=== PATIENT | male | born 1995 | race Caucasian/White ===

== ENCOUNTER 2023-08-11 08:27 | Outpatient (AMB) | payer OTHER, SELFPAY ==
--- NOTE | 2023-08-11 08:47 | MHC.OFFWIV ---
Intake Vital Signs 08/11/23 08:48 Weight 359 lb BP 120/84 Blood Pressure Location Rt brachial Position Sitting Pulse 74 Pulse Source Pulse Oximeter Pulse Oximetry (%) 97 Oxygen Delivery Method Room Air Intake Visit Reasons: EP RT wrist pain (lobby) Allergies No Known Allergies Allergy (Verified 08/11/23 08:49) Medication List - Last Reconciled 08/11/23 by María Elena Rizvi MD No Known Home Meds Do you need a note to return to daycare/school/sports/work: Yes HPI EP RT wrist pain (lobby) HPI Details Patient is a 28-year-old gentleman who has been having pain in his right wrist since in February 2023 Patient says that he woke up 1 day and was feeling pain. He has been wearing wrist splint since He tells me that sometimes discomfort is better the other time it is hurting. 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 with food And prednisone 20 mg once a day for 5 days. Review of Systems Const All systems reviewed & are unremarkable except as noted in HPI and below Physical Exam Vital Signs: Last Vital Signs Pulse 74 08/11/23 08:48 BP 120/84 08/11/23 08:48 Pulse Ox 97 08/11/23 08:48 Oxygen Delivery Method Room Air 08/11/23 08:48 Const General: no acute distress Orientation/consciousness: patient oriented x3 Eyes General: appearance normal, both eyes and all related structures Resp Effort & Inspection: normal respiratory effort and able to speak in complete sentences Auscultation: clear to auscultation bilaterally Neuro General: patient oriented x3 Extrem Other: Right hand wrist movement intact, no pain with tapping over median nerve, patient complaining of paresthesia over thumb and 1st 2 fingers, fingers with full range of motion without any pain, wrist has full range of motion, skin color pink, sensory intact Psych Mental Status: mental status grossly normal Assessment & Plan Assessment & Plan (1) Paresthesias in right hand: Code(s): R20.2 - Paresthesia of skin (2) Wrist pain, right: Code(s): M25.531 - Pain in right wrist Plan Patient is a 28-year-old gentleman who has been having pain in his right wrist since in February 2023 Patient says that he woke up 1 day and was feeling pain. He has been wearing wrist splint since He tells me that sometimes discomfort is better the other time it is hurting. 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 with food And prednisone 20 mg once a day for 5 days. Medications: New prednisone 20 mg PO DAILY 5 days 5 tabs 0RF naproxen 500 mg PO BID PRN 60 tabs 0RF pain Coding Level of Care Code New Pt Level 3 (40518) Diagnoses Paresthesias in right hand R20.2 Wrist pain, right M25.531
[2023-08-11 08:48] VITALS: BP 120/84; PULSE 74; O2SAT 97
== END 2023-08-11 09:43 | disposition home or self-care (01) ==
PROVIDERS: Visit Provider Internal Medicine
DX: R20.2 Paresthesia of skin (principal); M25.531 Pain in right wrist
CPT/HCPCS: 99203

== ENCOUNTER 2023-10-22 12:52 | Outpatient (AMB) | payer OTHER, SELFPAY ==
--- NOTE | 2023-10-22 12:55 | A.OFFPC_ITS ---
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 Research & Insights Executive Required: No Allergies No Known Allergies Allergy (Verified 10/22/23 12:58) Tobacco use date assessed: 10/22/23 Dental Screening Dental Screen Date: 10/22/23 Did you have a dental visit in the last 12 months?: No Did you have a dental problem in the last 6 months where you did not have access to dental care?: No HPI HPI Comments History of Present Illness Details 28 year old male with a past medical his tory of right hand pain presenting for follow up Intermittent levels of right carpal tunnel pain. 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 Needs to use splin nightly or pain worsens Recent strain left low back playing volleyball. Was improving then reinjured. Is sues with weight-diffulty with losing despite volleyball ROS see HPI PHYSICAL EXAM: GENERAL: Alert and oriented x 3. NAD EYES: EOMI. Anicteric. HENT: Moist mucous membranes. No scleral icterus. No cervical lymphadenopathy. LUNGS: Clear to auscultation bilaterally. CARDIOVASCULAR: Regular rate and rhythm. No murmur. No JVD. ABDOMEN: Soft, non-tender +bs EXTREMITIES: No edema. Non-tender. SKIN: No rashes or lesions. Warm. NEUROLOGIC: No focal neurological deficits. CN II-XII grossly intact PSYCHIATRIC: Cooperative. Appropriate mood and affect PFSH Family History (Updated 10/22/23 @ 13:16 by Shaneka Boswell) Father Alcohol abuse Substance abuse FH: mental illness Sister FH: mental illness Maternal Grandmother High blood pressure High cholesterol Diabetes Paternal Grandmother High blood pressure High cholesterol Diabetes Thyroid disorder Mother Cardiovascular disease Social History (Updated 10/22/23 @ 13:18 by Shaneka Boswell) Housing: [facility] Patient Tobacco Use Status: Never used Tobacco e-Cigarette/Vaping Use: Currently Using Second Hand Smoke Exposure: Yes Substance Use Type: Marijuana service: No 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 1. Little interest or pleasure in doing things: several days 2. Feeling down, depressed, or hopeless: several days 3. Trouble falling or staying asleep, or sleeping too much: several days 4. Feeling tired or having little energy: several days 5. Poor appetite or overeating: several days 6. Feeling bad about yourself - or that you are a failure or have let yourself or your family down: more than half the days 7. Trouble concentrating on things, such as reading the newspaper or watching television: several days 8. Moving or speaking so slowly that other people could have noticed. Or the opposite - being so fidgety or restless that you have been moving around a lot more than usual: not at all 9. Thoughts that you would be better off or of hurting yourself in some way: not at all Total score: 8 Depression Screening Interpretation: Positive Depression Screening Follow-up: Declines treatment Depression Screening Done: Yes 39811 - PHQ-9 Billing: Yes Source: Developed by Drs. Enoch Jasso, Samantha Villarreal, Laron Stevens and colleagues, with an educational harvinder from [employer]. Thrive Questionnaire Date Thrive assessed: 10/22/23 I am a: Patient What is your living situation today?: I have a steady place to live Within the past 12 months, did the food you bought not last and you didn't have the money to get more?: Never true Within the past 12 months, did you worry whether your food would run out before you got money to buy more?: Never true Do you have trouble paying for medicines?: No Do you have trouble getting transportation to medical appointments?: No Do you have trouble paying your heating and electricity bill?: No Do you have trouble taking care of your child, family member or friend?: No Do you have trouble with day-to-day activities such as bathing, preparing meals, shopping, managing finances, etc.?: No Are you currently unemployed and looking for a job?: No Are you interested in more education?: No Please select the resources that you would like help with: None Currently or been in a relationship where the following occur: No concerns reported THRIVE Score: 0 AUDIT C Alcohol Use Questionnaire (AUDIT-C) 1. How often do you have a drink containing alcohol?: 2-4 times a month 2. How many drinks containing alcohol do you have on a typical day when you are drinking?: 3 or 4 3. How often do you have six or more drinks on one occasion?: Monthly Total Score: 5 FOUZIA-7 AMB Questionnaire FOUZIA-7 Date FOUZIA - 7 assessed: 10/22/23 Feeling nervous, anxious, or on edge: 2 = More than half the days Not being able to stop or control worryin = Several days Worrying too much about different things: 1 = Several days Trouble relaxin = Several days Being so restless that it is hard to sit still: 0 = Not at all Becoming easily annoyed or irritable: 2 = More than half the days Feeling afraid as if something awful might happen: 0 = Not at all Total FOUZIA-7 score (0-4 normal; 5-9 mild; 10-14 moderate; 15-21 severe): 7 Source: Developed by Drs. Enoch Jasso, Samantha Villarreal, Laron Stevens and colleagues, with an educational harvinder from [employer]. FOUZIA-7 Assessment Billing FOUZIA-7 Assessment Tool: FOUZIA-7 Assessment 06614 Physical exam (Primary Care) Vital Signs: Last Vital Signs Temp 97.8 F 10/22/23 13:04 Pulse 84 10/22/23 13:04 Resp 16 10/22/23 13:04 BP 124/64 10/22/23 13:22 Pulse Ox 99 10/22/23 13:04 Oxygen Delivery Method Room Air 10/22/23 13:04 BMI result Body Mass Index 46.4 Tobacco/Smoking Status: Tobacco use Status Tobacco use date assessed 10/22/23 10/22/23 13:02 Patient Tobacco Use Status Never used Tobacco 10/22/23 13:18 e-Cigarette/Vaping Use Currently Using 10/22/23 13:18 PHQ-9: PHQ-9 Score PHQ-9: Total score 8 10/24/23 11:01 Depression Screening Interpretation: Positive Depression Screening Follow-up: Declines treatment Thrive Assessment: Date of Thrive Assessment Date Thrive assessed 10/22/23 10/22/23 13:17 Currently or been in a relationship where the following occur: No concerns reported Assessment and Plan Assessment & Plan (1) Wrist pain, right: Code(s): M25.531 - Pain in right wrist Plan: refer ortho Orders: Orders Comprehensive Met. Panel 6 Months Z13.0 - Encounter for screening for diseases of the blood and blood-forming organs and certain disorders involving the immune mechanism, Z13.220 - Encounter for screening for lipoid disorders, Z13.228 - Encounter for screening for other metabolic disorders Hemoglobin A1c 6 Months Z13.0 - Encounter for screening for diseases of the blood and blood-forming organs and certain disorders involving the immune mechan ism, Z13.220 - Encounter for screening for lipoid disorders, Z13.228 - Encounter for screening for other metabolic disorders Complete Blood Count Auto Diff 6 Months Z13.0 - Encounter for screening for diseases of the blood and blood-forming organs and certain disorders involving the immune mechanism, Z13.220 - Encounter for screening for lipoid disorders, Z13.228 - Encounter for screening for other metabolic disorders Lipid Panel 6 Months Z13.0 - Encounter for screening for diseases of the blood and blood-forming organs and certain disorders involving the immune mechanism, Z13.220 - Encounter for screening for lipoid disorders, Z13.228 - Encounter for screening for other metabolic disorders TSH reflex Free T4 6 Months Z13.0 - Encounter for screening for diseases of the blood and blood-forming organs and certain disorders involving the immune mechanism, Z13.220 - Encounter for screening for lipoid disorders, Z13.228 - Encounter for screening for other metabolic disorders Referrals Orthopedics Referral M25.531 - Pain in right wrist Medications: New cyclobenzaprine 10 mg (2 x 5 mg) PO BEDTIME PRN 30 tabs 0RF muscle spasm tirzepatide (Mounjaro) 2.5 mg (0.5 mL) subcut QWEEK 2 mL 0RF 4 weeks prednisone 40 mg (2 x 20 mg) PO DAILY 10 tabs 0RF 5 days ondansetron HCl 4 mg PO Q8H PRN 60 tabs 3RF nausea and vomiting 30 days Coding Level of Care Code New Pt Level 4 (76074) Complex EM visit Add On G2211 Diagnoses Wrist pain, right M25.531 Additional Codes FOUZIA-7 Assessment Billing - FOUZIA-7 Assessment Tool: FOUZIA-7 Assessment 90713 ([id number])
[2023-10-22 13:04] VITALS: BP 140/72; PULSE 84; RESP 16; TEMP 36.6; O2SAT 99; BMI 46.4
[2023-10-22 13:22] VITALS: BP 124/64
== END 2023-10-22 13:58 | disposition home or self-care (01) ==
PROVIDERS: Visit Provider Internal Medicine
DX: M25.531 Pain in right wrist (principal)
CPT/HCPCS: 99214

== ENCOUNTER 2024-05-25 08:58 | Outpatient (REF) | payer OTHER, SELFPAY ==
[2024-05-25 10:11] LABS: MANUAL DIFF FLAG NO
[2024-05-25 10:21] LABS: Basophils Percent Auto 0.5 % (0-2); Eosinophils Absolute Auto 0.2 X10*3/uL (0.0-0.4); Eosinophils Percent Auto 2.1 % (0-4); Hematocrit 46.7 % (42.0-52.0); Hemoglobin 15.8 g/dl (14.0-18.0); Imm Gran Abs Auto 0.03 X10*3/uL (0.00-0.03); Imm Gran Pct Auto 0.4 % (0.0-0.4); Lymphocytes Absolute Auto 1.8 X10*3/uL (1.2-4.9); Lymphocytes Percent Auto 23.6 % (20-40); Mean Corpuscular HGB Conc 33.8 g/dl (31.0-36.0); Mean Corpuscular Hemoglobin 29.5 pg (27.0-33.0); Mean Corpuscular Volume 87.3 fL (80.0-98.0); Mean Platelet Volume 10.3 fL (9.4-12.4); Monocytes Absolute Auto 0.5 X10*3/uL (0.1-1.2); Monocytes Percent Auto 6.8 % (2-11); Neutrophils Percent Auto 66.6 % (45-73); Platelet Count 283 X10*3/uL (160-400); Red Blood Count 5.35 X10*6/uL (4.60-5.80); Red Cell Distribution Width 12.9 % (11.0-16.0); White Blood Count 7.5 X10*3/uL (4.8-10.8)
[2024-05-25 10:42] LABS: Estimated Average Glucose 91 mg/dL; Hemoglobin A1C 116.6379 umol/L; Hemoglobin A1c % 4.8 % (<6.0); Total Hemoglobin (HGBA1C) 4032.2821 umol/L
[2024-05-25 11:02] LABS: Alanine Aminotransferase 20 U/L (0-40); Albumin Level 4.6 g/dL (3.5-5.0); Alkaline Phosphatase 126 U/L (39-117); Anion Gap 10 (12-20); Aspartate Amino Transferase 18 U/L (5-37); Bilirubin Total 0.6 mg/dL (0.0-1.0); Blood Urea Nitrogen 21 mg/dL (9-16); Calcium 9.5 mg/dL (8.4-10.2); Carbon Dioxide 28 mmol/L (22-29); Chloride 109 mmol/L (96-108); Cholesterol 160 mg/dL (<200); Estimated Glomerular Filt Rate > 60; Glucose Random 106 mg/dL (60-115); HDL Cholesterol 38 mg/dL (>40); LDL Cholesterol Calculated 102 mg/dL (<100); Sodium 143 mmol/L (135-145); Total Protein 7.8 g/dL (6.5-8.0); Triglycerides 100 mg/dL (<150)
[2024-05-25 11:10] LABS: TSH reflex Free T4 1.14 uIU/mL (0.32-4.0)
== END 2024-05-25 08:59 | disposition home or self-care (01) ==
LOC: HO.HMGCLDS 08:58
PROVIDERS: PCP Internal Medicine; Visit Provider Internal Medicine
DX: Z13.0 Encounter for screening for diseases of the blood and blood-forming organs and certain disorders involving the immune mechanism (principal); Z13.220 Encounter for screening for lipoid disorders; Z13.228 Encounter for screening for other metabolic disorders; Z13.29 Encounter for screening for other suspected endocrine disorder; Z13.1 Encounter for screening for diabetes mellitus
CPT/HCPCS: 36415; 80053; 80061; 83036; 84443; 85025

== ENCOUNTER 2024-05-30 08:48 | Outpatient (AMB) | payer OTHER, SELFPAY ==
--- OUTSIDE RECORDS SUMMARY | 2024-05-30 09:03 | XMS_ITS | Clinical Summary ---
Author Organization [email or web address] Address [address] [place] [address] Care Team Providers Care Furniture Technician Name Role Phone Unavailable Primary Care Provider Unavailabl e Immunizations Name Administration Dates Next Due Influenza, seasonal, injectable, preservative fr ee 01/06/2024 Social History Tobacco Use Types Packs/Day Years Used Date Smoking Tobacco: Never Assessed Sex and Gender Information Value Date Recorded Sex Assigned at Male 01/06/2024 3:15 PM EDT Legal Sex Male 3:12 PM EDT Gender Identity Male 01/06/2024 3:15 PM EDT Sexual Orientation Straight 01/06/2024 3: 15 PM EDT Plan of Treatment Health Maintenance Due Date Last Done Comments Depression Screening 1993 HIV Screening 1993 SDOH Screening 1993 Alcohol/Substance Use Screening 2005 Tobacco Screening 2005 Family Planning (PISQ) 2008 Hepatitis C Screening 07/07/2011 DTaP/Tdap/Td Vaccines (1 - Tdap) 2012 Hepatitis B Vaccines (1 of 3 - 19+ 3-dose series) 2012 COVID-19 Vaccine ( - 2023-2 5 season) 2023 Zoster Vaccines (1 of 2) 07/07/2043 RSV Patients and Patients Aged 60 years or older (1 - 1-dose 75+ series) 2068 Influenza Vaccine Completed 01/06/2024, 01/20/2020 HIB Vaccines Aged Out No longer eligi ble based on patient's age to complete this topic HPV Vaccines Aged Out No longer eligi ble based on patient's age to complete this topic Hepatitis A Vaccines Aged Out No long er eligible based on patient's age to complete this topic IPV Vaccines Aged Out No longer eligi ble based on patient's age to complete this topic Meningococcal Vaccine Aged Out No norma umang eligible based on patient's age to complete this topic Pneumococcal Vaccine: Pediatrics (0 to 5 Years) and At-Risk Patients (6 to 49) Years) Aged Out No longer eligible b ased on patient's age to complete this topic RSV under 20 months Aged Out No longe r eligible based on patient's age to complete this topic Rotavirus Vaccines Aged Out No longer eligible based on patient's age to complete this topic Insurance [facility] [address] [place] [address]
--- NOTE | 2024-05-30 09:04 | A.OFFPC_ITS ---
Vital Signs 05/30/24 09:09 BP 112/76 Blood Pressure Location Lt brachial Position Sitting Pulse 78 Pulse Source Pulse Oximeter Pulse Oximetry (%) 99 Oxygen Delivery Method Room Air Intake Visit Reasons: 6 month F/U/med-review Intake Note: Six month follow up Allergies No Known Allergies Allergy (Verified 05/30/24 09:06) Tobacco use date assessed: 10/22/23 Dental Screening Dental Screen Date: 10/22/23 HPI HPI Comments History of Present Illness Details 28 year old male with a past medical his tory of right hand pain, anxiety/depression presenting for follow up Intermittent levels of right carpal tunnel pain. 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 Needs to use splint nightly or pain worsens BH: Anxiety, depression stable on prozac 40mg daily. He does require a refill ROS see HPI PHYSICAL EXAM: GENERAL: Alert and oriented x 3. NAD EYES: EOMI. Anicteric. HENT: Moist mucous membranes. No scleral icterus. No cervical lymphadenopathy. LUNGS: Clear to auscultation bilaterally. CARDIOVASCULAR: Regular rate and rhythm. No murmur. No JVD. ABDOMEN: Soft, non-tender +bs EXTREMITIES: No edema. Non-tender. SKIN: No rashes or lesions. Warm. NEUROLOGIC: No focal neurological deficits. CN II-XII grossly intact PSYCHIATRIC: Cooperative. Appropriate mood and affect [facility] Surgical History No pertinent past surgical history Family History Father Alcohol abuse Substance abuse FH: mental illness Sister FH: mental illness Maternal Grandmother High blood pressure High cholesterol Diabetes Paternal Grandmother High blood pressure High cholesterol Diabetes Thyroid disorder Mother Cardiovascular disease Social History Housing: Condominium Alcohol intake: current Patient Tobacco Use Status: Never used Tobacco e-Cigarette/Vaping Use: Currently Using Second Hand Smoke Exposure: Yes Substance Use Type: Marijuana service: No 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 1. Little interest or pleasure in doing things: not at all 2. Feeling down, depressed, or hopeless: several days 3. Trouble falling or staying asleep, or sleeping too much: several days 4. Feeling tired or having little energy: several days 5. Poor appetite or overeating: several days 6. Feeling bad about yourself - or that you are a failure or have let yourself or your family down: several days 7. Trouble concentrating on things, such as reading the newspaper or watching television: not at all 8. Moving or speaking so slowly that other people could have noticed. Or the opposite - being so fidgety or restless that you have been moving around a lot more than usual: not at all 9. Thoughts that you would be better off or of hurting yourself in some way: not at all Total score: 5 Depression Screening Interpretation: Positive Depression Screening Follow-up: Existing condition Depression Screening Done: Yes 77295 - PHQ-9 Billing: Yes Source: Developed by Drs. Enoch Jasso, Samantha Villarreal, Laron Stevens and colleagues, with an educational harvinder from [employer]. Thrive Questionnaire Date Thrive assessed: 05/27/24 I am a: Patient What is your living situation today?: I have a steady place to live Within the past 12 months, did the food you bought not last and you didn't have the money to get more?: Never true Within the past 12 months, did you worry whether your food would run out before you got money to buy more?: Never true Do you have trouble paying for medicines?: No Do you have trouble getting transportation to medical appointments?: No Do you have trouble paying your heating and electricity bill?: No Do you have trouble taking care of your child, family member or friend?: No Do you have trouble with day-to-day activities such as bathing, preparing meals, shopping, managing finances, etc.?: No Are you currently unemployed and looking for a job?: No Are you interested in more education?: No Please select the resources that you would like help with: None Currently or been in a relationship where the following occur: No concerns reported THRIVE Score: 0 AUDIT C Alcohol Use Questionnaire (AUDIT-C) 1. How often do you have a drink containing alcohol?: 2-4 times a month 2. How many drinks containing alcohol do you have on a typical day when you are drinking?: 3 or 4 3. How often do you have six or more drinks on one occasion?: Less than monthly Total Score: 4 FOUZIA-7 AMB Questionnaire FOUZIA-7 Date FOUZIA - 7 assessed: 10/22/23 Feeling nervous, anxious, or on edge: 1 = Several days Not being able to stop or control worryin = Several days Worrying too much about different things: 0 = Not at all Trouble relaxin = Not at all Being so restless that it is hard to sit still: 0 = Not at all Becoming easily annoyed or irritable: 1 = Several days Feeling afraid as if something awful might happen: 0 = Not at all Total FOUZIA-7 score (0-4 normal; 5-9 mild; 10-14 moderate; 15-21 severe): 3 Source: Developed by Drs. Enoch Jasso, Samantha Villarreal, Laron Stevens and colleagues, with an educational harvinder from [employer]. Physical exam (Primary Care) Vital Signs: Last Vital Signs Pulse 78 05/30/24 09:09 BP 112/76 05/30/24 09:09 Pulse Ox 99 05/30/24 09:09 Oxygen Delivery Method Room Air 05/30/24 09:09 Tobacco/Smoking Status: Tobacco use Status Tobacco use date assessed 10/22/23 10/22/23 13:02 Patient Tobacco Use Status Never used Tobacco 05/30/24 09:08 e-Cigarette/Vaping Use Currently Using 05/30/24 09:08 Depression Screening Interpretation: Positive Depression Screening Follow-up: Existing condition Thrive Assessment: Date of Thrive Assessment Date Thrive assessed 05/27/24 05/27/24 12:44 Currently or been in a relationship where the following occur: No concerns reported Coding Level of Care Code Est Pt Level 4 (57012) Diagnoses Anxiety F41.9 Wrist pain, right M25.531 Additional Codes PHQ-9 - 63708 - PHQ-9 Billing: Yes ([id number]) Assessment & Plan Assessment & Plan (1) Anxiety: Code(s): F41.9 - Anxiety disorder, unspecified Category: Medical Plan: stable on prozac. med refilled (2) Wrist pain, right: Code(s): M25.531 - Pain in right wrist Category: Medical Plan: stable on prn naproxen. labs are stable Medications: New naproxen sodium 220 mg PO BID PRN 180 caps 0RF pain fluoxetine 40 mg PO DAILY 90 caps 3RF
[2024-05-30 09:09] VITALS: BP 112/76; PULSE 78; O2SAT 99
== END 2024-05-30 09:19 | disposition home or self-care (01) ==
PROVIDERS: PCP Internal Medicine; Visit Provider Internal Medicine
DX: F41.9 Anxiety disorder, unspecified (principal); M25.531 Pain in right wrist

== ENCOUNTER → 2024-05-30 08:48 | Outpatient (BNVA) | payer OTHER, SELFPAY | PROVIDERS: PCP Internal Medicine; Visit Provider Internal Medicine | DX: F41.9 Anxiety disorder, unspecified (principal); M25.531 Pain in right wrist | CPT/HCPCS: 96127 ==

== ENCOUNTER 2024-07-11 09:26 | Outpatient (AMB) | payer OTHER, SELFPAY ==
--- NOTE | 2024-07-11 09:32 | AM.OFFWIN_ITS ---
Intake Vital Signs 07/11/24 09:33 Height 5 ft 11 in Weight 301 lb 8 oz BMI 42.0 BP 140/92 H Blood Pressure Location Rt brachial Position Sitting Pulse 84 Pulse Source Pulse Oximeter Temp 98.0 F Temp Source Oral Pulse Oximetry (%) 99 Oxygen Delivery Method Room Air Intake Visit Reasons: EP-STD testing Intake Note: Pt presents to the office today looking to have STD testing done. Patient Tobacco Use Status: Never used Tobacco Allergies No Known Allergies Allergy (Verified 07/11/24 09:37) Medication List - Last Reconciled 07/11/24 by María Elena Rizvi MD fluoxetine 40 mg PO DAILY naproxen sodium 220 mg PO BID PRN HPI EP-STD testing HPI Details History - The patient is a 29-year-old male pres enting for sexually transmitted disease/infection testing. - He is beginning a new sexual relations hip soon and had a recent instance of alcohol-related memory loss during a trip to [place]. While in group setting - He has no symptoms like penile dischar ge or dysuria but is seeking precautionary screening for sexually transmitted infections. - Urine testing for gonorrhea and chlamy antonietta will be conducted, and blood tests for additional infections, including HIV, hepatitis, and syphilis, are planned. - He has been counseled about the two-we ek incubation period for detecting some infections post-exposure. Problem List Screening for - Gonorrhea - Chlamydia - HIV - Hepatitis - Syphilis Patient Instructions - Complete all lab tests as ordered for gonorrhea, chlamydia, HIV, hepatitis, and syphilis. - Be mindful of the two-week incubation period for certain sexually transmitted infections; consider follow-up testing if necessary. - Practice safe sexual behaviors with ne w partners to prevent potential infections. - Contact the clinic immediately if any symptoms such as discharge or burning urination develop. Review of Systems - Genitourinary: Denies penile discharge , denies dysuria. - General: No fever no chills - Neurological: No headaches no dizziness - Ear nose throat: No sore throat no hearing difficulty no ear pain - Cardiovascular: No syncope, no chest pain, no palpitations - Gastrointestinal: No nausea vomiting or diarrhea - Endocrine: No polyuria polydipsia no heat intolerance - Genitourinary: No dysuria , no blood in urine PFSH Surgical History No pertinent past surgical history Family History Father Alcohol abuse Substance abuse FH: mental illness Sister FH: mental illness Maternal Grandmother High blood pressure High cholesterol Diabetes Paternal Grandmother High blood pressure High cholesterol Diabetes Thyroid disorder Mother Cardiovascular disease Social History Housing: Condominium Alcohol intake: current Patient Tobacco Use Status: Never used Tobacco e-Cigarette/Vaping Use: Currently Using Second Hand Smoke Exposure: Yes Substance Use Type: Marijuana service: No Current occupational status: employed 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 Current occupational exposures/hazards: Yes Cognitive needs: No Hearing needs: No Vision needs: Yes Physical Exam Vital Signs: Last Vital Signs Temp 98.0 F 07/11/24 09:33 Pulse 84 07/11/24 09:33 BP 140/92 H 07/11/24 09:33 Pulse Ox 99 07/11/24 09:33 Oxygen Delivery Method Room Air 07/11/24 09:33 BMI result Body Mass Index 42.0 Const General: no acute distress Orientation/consciousness: patient oriented x3 Eyes General: appearance normal, both eyes and all related structures Resp Effort & Inspection: normal respiratory effort and able to speak in complete sentences Neuro General: patient oriented x3 Psych Mental Status: mental status grossly normal Assessment & Plan Assessment & Plan (1) STD exposure: Code(s): Z20.2 - Contact with and (suspected) exposure to infections with a predominantly sexual mode of transmission (2) Transient memory loss: Code(s): R41.3 - Other amnesia (3) Health education/counseling: Code(s): Z71.9 - Counseling, unspecified Plan History - The patient is a 29-year-old male presenting for sexually transmitted disease/infection testing. - He is beginning a new sexual relationship soon and had a recent instance of alcohol-related memory loss during a trip to [place]. While in group setting - He has no symptoms like penile discharge or dysuria but is seeking precautionary screening for sexually transmitted infections. - Urine testing for gonorrhea and chlamydia will be conducted, and blood tests for additional infections, including HIV, hepatitis, and syphilis, are planned. - He has been counseled about the two-week incubation period for detecting some infections post-exposure. Problem List Screening for - Gonorrhea - Chlamydia - HIV - Hepatitis - Syphilis Patient Instructions - Complete all lab tests as ordered for gonorrhea, chlamydia, HIV, hepatitis, and syphilis. - Be mindful of the two-week incubation period for certain sexually transmitted infections; consider follow-up testing if necessary. - Practice safe sexual behaviors with new partners to prevent potential infections. - Contact the clinic immediately if any symptoms such as discharge or burning urination develop. Review of Systems - Genitourinary: Denies penile discharge, denies dysuria. - General: No fever no chills - Neurological: No headaches no dizziness - Ear nose throat: No sore throat no hearing difficulty no ear pain - Cardiovascular: No syncope, no chest pain, no palpitations - Gastrointestinal: No nausea vomiting or diarrhea - Endocrine: No polyuria polydipsia no heat intolerance - Genitourinary: No dysuria , no blood in urine Orders: Orders Herpes Simplex Virus Ab IgG Today Z20.2 - Contact with and (suspected) exposure to infections with a predominantly sexual mode of transmission Hepatitis C Antibody Today Z20.2 - Contact with and (suspected) exposure to infections with a predominantly sexual mode of transmission Syphilis Screen Today Z20.2 - Contact with and (suspected) exposure to infections with a predominantly sexual mode of transmission CT NG by PCR Today Z20.2 - Contact with and (suspected) exposure to infections with a predominantly sexual mode of transmission HIV Ab/Ag Today Z20.2 - Contact with and (suspected) exposure to infections with a predominantly sexual mode of transmission Hepatitis B Surface Antibody Today Z20.2 - Contact with and (suspected) exposure to infections with a predominantly sexual mode of transmission Coding Level of Care Code Est Pt Level 3 (07294) Diagnoses STD exposure Z20.2 Transient memory loss R41.3 Health education/counseling Z71.9
[2024-07-11 09:33] VITALS: BP 140/92; PULSE 84; TEMP 36.7; O2SAT 99; BMI 42.0
--- OUTSIDE RECORDS SUMMARY | 2024-07-11 10:18 | XMS_ITS | Clinical Summary ---
Author Organization [employer] Address [address] [place] [address] Care Team Providers Care Work Car Operator Name Role Phone Unavailable Primary Care Provider [...] patient's age to complete this topic Insurance [facility] , [address] [place] [address]
== END 2024-07-11 09:53 | disposition home or self-care (01) ==
PROVIDERS: PCP Internal Medicine; Visit Provider Internal Medicine
DX: Z20.2 Contact with and (suspected) exposure to infections with a predominantly sexual mode of transmission (principal); R41.3 Other amnesia; Z71.9 Counseling, unspecified

== ENCOUNTER 2024-07-11 09:26 | Outpatient (REF) | payer OTHER, SELFPAY ==
[2024-07-11 16:25] LABS: CT PCR NOT DETECTED (Not Detect.); NG PCR NOT DETECTED (Not Detect.)
== END 2024-07-11 09:27 | disposition home or self-care (01) ==
LOC: HO.LAB 09:26
PROVIDERS: Internal Medicine; PCP Internal Medicine
DX: Z20.2 Contact with and (suspected) exposure to infections with a predominantly sexual mode of transmission (principal); R41.3 Other amnesia; Z71.9 Counseling, unspecified
CPT/HCPCS: 87491; 87591

== ENCOUNTER 2024-07-19 12:40 | Outpatient (AMB) | payer OTHER, SELFPAY ==
[2024-07-19 12:44] VITALS: BP 130/90; PULSE 59; TEMP 36.6; O2SAT 100
--- NOTE | 2024-07-19 12:44 | AM.OFFWIN_ITS ---
Intake Vital Signs 07/19/24 12:44 Weight 301 lb BP 130/90 H Blood Pressure Location Lt brachial Position Sitting Pulse 59 Pulse Source Pulse Oximeter Temp 98 F Temp Source Oral Pulse Oximetry (%) 100 Oxygen Delivery Method Room Air Intake Visit Reasons: EP Sore throat Intake Note: Patient here for sore throat that has been present for about 1 week. Patient Tobacco Use Status: Never used Tobacco Allergies No Known Allergies Allergy (Verified 07/19/24 12:47) Do you need a note to return to daycare/school/sports/work: Yes HPI HPI Comments History of Present Illness Details History - The patient is a 29-year-old male pres enting with a sore throat and shortness of breath. His sore throat symptoms have been ongoing for three days, accompanied by inflammation, managed with Tylenol and ofji-fjb-[id number] cold medications. He reports loss of voice occasionally. Shortness of breath occurs more prominently during physical activities; gym activities, in particular, have highlighted this recent change. No fever, wheezing, sinus, or ear pain is noted, and he denies nausea, vomiting, or diarrhea. Previous STD screenings have been negative, and no recent new sexual activity was reported. No chronic respiratory issues or inhaler usage is indicated. Physical Exam General: Cooperative, healthy appearing, comfortable and no acute distress Orientation/consciousness: Patient oriented x3 Limitations: No limitations Head: Normal to inspection Ears: Hearing grossly normal bilaterally, external ears normal and TM's normal bilaterally Nose: Normal external nose present, Normal nares present and No nasal discharge present Face and sinus: Normal facial exam and Yes sinuses nontender Mouth: Normal oral and palatal mucosa present and moist mucous membranes Throat: Yes tonsils normal, Yes uvula midline. Posterior oropharynx erythema, slight edema and exudates noted on right tonsil Eyes: Appearance normal, both eyes and all related structures Neck: Normal visual inspection Respiratory: Clear to auscultation bilaterally. Normal respiratory effort, able to speak in complete sentences, no respiratory distress, not tachypneic, no tripod positioning and no use of accessory muscles. Cardiovascular: Regular rate and rhythm. Normal S1 and S2 Skin: No rashes or lesions noted Neuro: Patient oriented x3 Extremities: Normal to inspection and Yes no clubbing, cyanosis or edema PFSH Surgical History No pertinent past surgical history Family History Father Alcohol abuse Substance abuse FH: mental illness Sister FH: mental illness Maternal Grandmother High blood pressure High cholesterol Diabetes Paternal Grandmother High blood pressure High cholesterol Diabetes Thyroid disorder Mother Cardiovascular disease Social History Housing: Condominium Alcohol intake: current Patient Tobacco Use Status: Never used Tobacco e-Cigarette/Vaping Use: Currently Using Second Hand Smoke Exposure: Yes Substance Use Type: Marijuana service: No Current occupational status: employed 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 Due to his symptoms of sore throat and shortness of breath, various diagnostic tests were conducted, including strep, influenza, COVID-19, and RSV, and chlamydia swabs of the throat were also taken. An inhaler was prescribed to assist with shortness of breath, administered every four to six hours. Further, due to occupational exposure risk, he was advised work leave. Sexual activity is to be restricted until all relevant diagnostic testing returns and symptoms resolve. Ongoing management and specific treatments await the scheduled result updates to facilitate the progression from working diagnosis to specific, targeted therapy. Coordination for test result communication is prioritized to proceed with necessary care before the week's end. Patient was informed and verbally consented to the use of an ambient scribe for clinic note documentation during this visit Orders: Orders SARS-CoV2/FLU/RSV Today R09.89 - Other specified symptoms and signs involving the circulatory and respiratory systems Throat Culture Today J02.9 - Acute pharyngitis, unspecified CT NG RNA TMA, Throat Today R07.0 - Pain in throat Medications: New albuterol sulfate 90 mcg/actuation 2 puffs inhalation Q6H PRN 8.5 grams 0RF shortness of breath or wheezing or cough Coding Level of Care Code Est Pt Level 4 (55720) Diagnoses URI, acute J06.9
--- OUTSIDE RECORDS SUMMARY | 2024-07-19 14:57 | XMS_ITS | Clinical Summary ---
Author Organization [facility] Address [address] [place] [address] Care Team Providers Care Hammer Fitter Name Role Phone Unavailable Primary Care Provider [...] patient's age to complete this topic Insurance [facility] , [address] [place] [address]
== END 2024-07-19 13:14 | disposition home or self-care (01) ==
PROVIDERS: PCP Internal Medicine; Visit Provider Physician Assistant
DX: J06.9 Acute upper respiratory infection, unspecified (principal); Z13.9 Encounter for screening, unspecified

== ENCOUNTER 2024-07-19 12:40 | Outpatient (REF) | payer OTHER, SELFPAY ==
[2024-07-19 17:40] LABS: Influenza A PCR NEGATIVE (Negative); Influenza B PCR NEGATIVE (Negative); Resp Syncy Virus RNA Qual PCR NEGATIVE (Negative); SARS COV2 PCR INHOUSE NEGATIVE (Negative)
[2024-07-22 08:53] LABS: C. Trachomatis RNA TMA, Throat NOT DETECTED; N. gonorrhoeae RNA TMA, Throat NOT DETECTED
== END 2024-07-19 12:41 | disposition home or self-care (01) ==
LOC: HO.LAB 12:40
PROVIDERS: Physician Assistant; PCP Internal Medicine
DX: J06.9 Acute upper respiratory infection, unspecified (principal); R09.89 Other specified symptoms and signs involving the circulatory and respiratory systems; R07.0 Pain in throat
CPT/HCPCS: 0241U; 87070; 87147; 87491; 87591; 87880

== ENCOUNTER 2024-07-25 08:14 | Outpatient (REF) | payer OTHER, SELFPAY ==
[2024-07-25 11:39] LABS: Syphilis Screen Nonreactive (Nonreactive)
[2024-07-25 11:42] LABS: HBS Num1 13.32 mIU/mL (0-7.99); HIV AB/AG Nonreactive (Nonreactive); HIV Num 1 0.06 S/CO (0.00-0.99); ~HepC Num1 0.81 S/CO (0.00-0.79); ~Hepatitis B Surface Antibody REACTIVE (Nonreactive)
[2024-07-25 13:10] LABS: ~HepC Num2 0.12; ~HepC Num3 0.15; ~Hepatitis C Antibody NONREACTIVE (Nonreactive)
[2024-07-26 22:17] LABS: Herpes Simplex Type 1 IgG <0.90 index; Herpes Simplex Type 2 IgG <0.90 index
== END 2024-07-25 08:15 | disposition home or self-care (01) ==
LOC: HO.HMGCLDS 08:14
PROVIDERS: PCP Internal Medicine; Referring Provider Internal Medicine; Visit Provider Nurse Practitioner Family
DX: Z20.2 Contact with and (suspected) exposure to infections with a predominantly sexual mode of transmission (principal)
CPT/HCPCS: 36415; 86695; 86696; 86706; 86780; 86803; 87389; 87880

== ENCOUNTER 2024-07-25 08:14 | Outpatient (AMB) | payer OTHER, SELFPAY ==
--- OUTSIDE RECORDS SUMMARY | 2024-07-25 08:28 | XMS_ITS | Clinical Summary ---
Author Organization [facility] [employer] Address [address] [place] [address] Care Team Providers Care Preflight Inspector Name Role Phone Unavailable Primary Care Provider [...] patient's age to complete this topic Insurance [facility] , [address] [place] [address]
[2024-07-25 08:37] VITALS: BP 130/80; PULSE 74; O2SAT 98
--- NOTE | 2024-07-25 08:37 | AM.OFFWIN_ITS ---
Intake Vital Signs 3 07/25/24 08:37 BP 130/80 Blood Pressure Location Lt brachial Position Sitting Pulse 74 Pulse Source Pulse Oximeter Pulse Oximetry (%) 98 Oxygen Delivery Method Room Air Intake Visit Reasons: EP sore throat Intake Note: Patient here for sore throat that has been present for almost 2 weeks. Patient Tobacco Use Status: Never used Tobacco Allergies No Known Allergies Allergy (Verified 07/25/24 08:50) Medication List - Last Reconciled 07/25/24 by DELL JuarezP- albuterol sulfate 90 mcg/actuation 2 puffs inhalation Q6H PRN fluoxetine 40 mg PO DAILY naproxen sodium 220 mg PO BID PRN HPI HPI Comments 2 History of Present Illness0 Details PCP Dr Clements History - The patient is a 29-year-old male pres enting with a sore throat for at least 2 weeks - characterized by discomfort upon swal lowing. - He denies having a significant cough. - The patient reports being exposed to [facility]PATH diagnosed with Streptococcal infection. - Previous tests for strep throat, as we ll as tests for gonorrhea and chlamydia, have returned negative. See below - He has taken DayQuil, NightQuil, and B enadryl with minimal relief. - No postnasal drip, notable cough, or a bdominal pain is present. - The patient denies past exposure to mo no. 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 No apparent distress Eyes: Sclera and conjunctiva clear bilaterally Nose: Nares scant clear drainge, turbinates erythematous,, no sinus tenderness with palpation bilaterally Ears: Tympanic membranes intact and clear bilaterally Throat: Moist mucosa membrane, pharynx within normal limits, uvula midline, shotty ac adenopathy Results - Throat swab for Streptococcus: Previou sly negative. - Culture for Streptococcus: Previously negative. - Gonorrhea/Chlamydia throat culture: Pr eviously negative. Strep negative today Bland negative today Testing for pharyngitis negative ? GERD as cause 2 week trial of PPI and close f/u with P CP recommended Message sent to PCP front office staff to arrange fu Consent Patient was informed and verbally consented to the use of an ambient scribe for clinic note documentation during this visit. Total time spent caring for the patient today was 30 minutes. This includes time spent before the visit reviewing the chart, time spent during the visit, and time spent after the visit on documentation, reviewing laboratory results, diagnostic imaging, medications, performing a medically necessary evaluation, counseling on diagnoses, care coordination, ordering appropriate tests, ordering appropriate medications, review of tests performed by other providers, reporting test results with the patient, communication with other healthcare providers. [facility] Surgical History No pertinent past surgical history Family History Father Alcohol abuse Substance abuse FH: mental illness Sister FH: mental illness Maternal Grandmother High blood pressure High cholesterol Diabetes Paternal Grandmother High blood pressure High cholesterol Diabetes Thyroid disorder Mother Cardiovascular disease [facility] intake: current Patient Tobacco Use Status: Never used Tobacco e-Cigarette/Vaping Use: Currently Using Second Hand Smoke Exposure: Yes Substance Use Type: Marijuana service: No 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 Medications: New 2 omeprazole 20 mg PO DAILY 30 caps 1RF Coding Level of Care Code Est Pt Level 4 (96058) Diagnoses Pharyngitis, unspecified etiology J02.9 Pharyngitis/tonsillitis etiology: unspecified etiology
== END 2024-07-25 09:25 | disposition home or self-care (01) ==
PROVIDERS: PCP Internal Medicine; Visit Provider Nurse Practitioner Family
DX: J02.9 Acute pharyngitis, unspecified (principal); Z13.9 Encounter for screening, unspecified

== ENCOUNTER 2024-08-08 09:05 | Outpatient (AMB) | payer OTHER, SELFPAY ==
--- NOTE | 2024-08-08 09:08 | A.OFFPC_ITS ---
Vital Signs 08/08/24 09:14 Height 5 ft 11 in Weight 303 lb BMI 42.3 BP 135/70 Blood Pressure Location Rt brachial Position Sitting Respiration 16 Pulse 71 Pulse Source Pulse Oximeter Pulse Oximetry (%) 98 Oxygen Delivery Method Room Air Intake Visit Reasons: FU chronic sore throat, trial PPI Intake Note: Follow up chronic sore throat Client Account Assistant Required: No Allergies No Known Allergies Allergy (Verified 08/08/24 09:11) Tobacco use date assessed: 10/22/23 Dental Screening Dental Screen Date: 10/22/23 HPI HPI Comments History of Present Illness Details 29 year old male with a past medical his tory of right hand pain, anxiety/depression presenting for follow up on sore throat. He was had about 2 weeks of sore throat. Tested negative for infectious causes, did report symptoms were worse in the morning. Some interval improvement on omeprazole x 2 weeks. Will complete a month Intermittent levels of right carpal tunnel pain. 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 Has naproxen prn. Needs to use splint nightly or pain worsens BH: Anxiety, depression stable on prozac 40mg daily. ROS see HPI PHYSICAL EXAM: GENERAL: Alert and oriented x 3. NAD EYES: EOMI. Anicteric. HENT: Moist mucous membranes. No scleral icterus. No cervical lymphadenopathy. LUNGS: Clear to auscultation bilaterally. CARDIOVASCULAR: Regular rate and rhythm. No murmur. No JVD. ABDOMEN: Soft, non-tender +bs EXTREMITIES: No edema. Non-tender. SKIN: No rashes or lesions. Warm. NEUROLOGIC: No focal neurological deficits. CN II-XII grossly intact PSYCHIATRIC: Cooperative. Appropriate mood and affect [facility] Surgical History No pertinent past surgical history Family History Father Alcohol abuse Substance abuse FH: mental illness Sister FH: mental illness Maternal Grandmother High blood pressure High cholesterol Diabetes Paternal Grandmother High blood pressure High cholesterol Diabetes Thyroid disorder Mother Cardiovascular disease Social History Housing: Condominium Alcohol intake: current Patient Tobacco Use Status: Never used Tobacco e-Cigarette/Vaping Use: Currently Using Second Hand Smoke Exposure: Yes Substance Use Type: Former Substance User and Marijuana service: No 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 1. Little interest or pleasure in doing things: not at all 2. Feeling down, depressed, or hopeless: not at all 3. Trouble falling or staying asleep, or sleeping too much: several days 4. Feeling tired or having little energy: several days 5. Poor appetite or overeating: several days 6. Feeling bad about yourself - or that you are a failure or have let yourself or your family down: not at all 7. Trouble concentrating on things, such as reading the newspaper or watching television: not at all 8. Moving or speaking so slowly that other people could have noticed. Or the opposite - being so fidgety or restless that you have been moving around a lot more than usual: several days 9. Thoughts that you would be better off or of hurting yourself in some way: not at all Total score: 4 Depression Screening Interpretation: Negative Depression Screening Done: Yes 86022 - PHQ-9 Billing: Yes Source: Developed by Drs. Enoch Jasso, Samantha Villarreal, Laron Stevens and colleagues, with an educational harvinder from [employer]. Thrive Questionnaire Date Thrive assessed: 08/08/24 I am a: Patient What is your living situation today?: I have a steady place to live Within the past 12 months, did the food you bought not last and you didn't have the money to get more?: Never true Within the past 12 months, did you worry whether your food would run out before you got money to buy more?: Never true Do you have trouble paying for medicines?: No Do you have trouble getting transportation to medical appointments?: No Do you have trouble paying your heating and electricity bill?: No Do you have trouble taking care of your child, family member or friend?: No Do you have trouble with day-to-day activities such as bathing, preparing meals, shopping, managing finances, etc.?: No Are you currently unemployed and looking for a job?: No Are you interested in more education?: No Please select the resources that you would like help with: None Currently or been in a relationship where the following occur: No concerns reported THRIVE Score: 0 AUDIT C Alcohol Use Questionnaire (AUDIT-C) 1. How often do you have a drink containing alcohol?: Monthly or less 2. How many drinks containing alcohol do you have on a typical day when you are drinking?: 3 or 4 3. How often do you have six or more drinks on one occasion?: Never Total Score: 2 FOUZIA-7 AMB Questionnaire FOUZIA-7 Date FOUZIA - 7 assessed: 08/08/24 Feeling nervous, anxious, or on edge: 0 = Not at all Not being able to stop or control worryin = Not at all Worrying too much about different things: 0 = Not at all Trouble relaxin = Not at all Being so restless that it is hard to sit still: 0 = Not at all Becoming easily annoyed or irritable: 1 = Several days Feeling afraid as if something awful might happen: 0 = Not at all Total FOUZIA-7 score (0-4 normal; 5-9 mild; 10-14 moderate; 15-21 severe): 1 Source: Developed by Drs. Enoch Jasso, Samantha Villarreal, Laron Stevens and colleagues, with an educational harvinder from [employer]. FOUZIA-7 Assessment Billing FOUZIA-7 Assessment Tool: FOUZIA-7 Assessment 34586 Physical exam (Primary Care) Vital Signs: Last Vital Signs Pulse 71 08/08/24 09:14 Resp 16 08/08/24 09:14 BP 135/70 08/08/24 09:14 Pulse Ox 98 08/08/24 09:14 Oxygen Delivery Method Room Air 08/08/24 09:14 BMI result Body Mass Index 42.3 Tobacco/Smoking Status: Tobacco use Status Tobacco use date assessed 10/22/23 05/30/24 09:11 Patient Tobacco Use Status Never used Tobacco 07/25/24 08:38 e-Cigarette/Vaping Use Currently Using 05/30/24 09:11 Depression Screening Interpretation: Negative Thrive Assessment: Date of Thrive Assessment Date Thrive assessed 05/27/24 05/30/24 09:11 Currently or been in a relationship where the following occur: No concerns reported Coding Level of Care Code Est Pt Level 3 (66289) Diagnoses Sore throat J02.9 Additional Codes FOUZIA-7 Assessment Billing - FOUZIA-7 Assessment Tool: FOUZIA-7 Assessment 57371 ([id number]) PHQ-9 - 45307 - PHQ-9 Billing: Yes ([id number]) Assessment & Plan Assessment & Plan (1) Sore throat: Code(s): J02.9 - Acute pharyngitis, unspecified Category: Medical Plan: Improving with trial of PPI. Finish one month course He will call if symptoms recur/worsen and will consider ENT/GI
[2024-08-08 09:14] VITALS: BP 135/70; PULSE 71; RESP 16; O2SAT 98; BMI 42.3
--- OUTSIDE RECORDS SUMMARY | 2024-08-08 09:41 | XMS_ITS | Clinical Summary ---
Author Organization [facility] Address [address] [facility] [address] [place] [address] Care Team Providers Care Uniform Room Attendant Name Role Phone Unavailable Primary Care Provider Unavailabl e Allergies No known active allergies Medications FLUoxetine (PROzac) 40 MG capsule Take 1 capsule by mouth Once per day. 5 Active omeprazole (PriLOSEC) [address] capsule Take 1 capsule by mouth Once per day. Active albuterol 108 (90 Base) MCG/ACT inhaler Inhale 2 puffs every 6 (six) hours if needed for wheezing or shortness of breath. 5 08/02/19 25 Discontinu ed(Therapy completed) Active Problems No known active problems Encounters Date Type Department Care Team Description 08/01/2024 9:00 AM EDT Office Visit [facility] [address] [place] [id number] Tarka, Daila, OD Myopia, bilateral (Primary Dx) 08/01/2024 Travel from Last 3 Months Immunizations Name Administration Dates Next Due Influenza, seasonal, injectable, preservative fr ee 01/06/2024 Family History Medical History Relation Name Comments Diabetes Paternal Grandmother Relation Name Status Comments Paternal Grandmother Social History Tobacco Use Types Packs/Day Years Used Date Smoking Tobacco: Never Tobacco Cessation:Counseling Given: Not Answered Comments:Vape Sex and Gender Information Value Date Recorded Sex Assigned at Male 01/06/2024 3:15 PM EDT Legal Sex Male 3:12 PM EDT Gender Identity Male 01/06/2024 3:15 PM EDT Sexual Orientation Straight 01/06/2024 3: 15 PM EDT Plan of Treatment Health Maintenance Due Date Last Done Comments Depression Screening 1993 HIV Screening 1993 SDOH Screening 1993 Alcohol/Substance Use Screening 2005 Family Planning (PISQ) 2008 Hepatitis C Screening 07/07/2011 DTaP/Tdap/Td Vaccines (1 - Tdap) 2012 Hepatitis B Vaccines (1 of 3 - 19+ 3-dose series) 2012 COVID-19 Vaccine (1 - 2023-2 5 season) 2023 Tobacco Screening 08/01/2025 08/01/2024 Zoster Vaccines (1 of 2) 07/07/2043 RSV [...] patient's age to complete this topic Insurance , [address] [place] [address]
== END 2024-08-08 09:40 | disposition home or self-care (01) ==
PROVIDERS: PCP Internal Medicine; Visit Provider Internal Medicine
DX: J02.9 Acute pharyngitis, unspecified (principal)

== ENCOUNTER → 2024-08-08 09:05 | Outpatient (BNVA) | payer OTHER, SELFPAY | PROVIDERS: PCP Internal Medicine; Visit Provider Internal Medicine | DX: J02.9 Acute pharyngitis, unspecified (principal) | CPT/HCPCS: 96127 ==

== ENCOUNTER 2024-08-23 10:38 | Outpatient (AMB) | payer OTHER, SELFPAY ==
--- NOTE | 2024-08-23 10:42 | AM.OFFWIN_ITS ---
Intake Vital Signs 08/23/24 10:43 Height 5 ft 11 in Weight 294 lb 6 oz BMI 41.1 BP 130/78 Blood Pressure Location Lt brachial Position Sitting Pulse 84 Pulse Source Pulse Oximeter Temp 98.1 F Temp Source Oral Pulse Oximetry (%) 97 Oxygen Delivery Method Room Air Intake Visit Reasons: EP scraped knee Intake Note: Patient complains of Scraped right knee due to a fall. Patient Tobacco Use Status: Never used Tobacco Weapons System Instrument Mechanic Required: No Laboratory Cureman: Not Required per policy Accompanied by: Self / Same As Patient Allergies No Known Allergies Allergy (Verified 08/23/24 10:43) Do you need a note to return to daycare/school/sports/work: Yes HPI HPI Comments History of Present Illness Details History of Present Illness - The patient is a 29-year-old male pres enting with an infected abrasion on the right knee. - The abrasion resulted from a scrape wh ile playing volleyball last Wednesday, his shoe fell off and he fell on the volleyball surface. - The patient notes oozing from the jv dorota and warmth was felt in the area the previous day. - Daily wound care involves washing twic e and covering it with a bandage during work hours. - There is no previous history of MRSA i nfections reported by the patient. Physical Exam General: Cooperative, healthy appearing, comfortable, no acute distress and well developed Orientation: Patient oriented x3 Limitations: No limitations Head: Normal to inspection Ears: Hearing grossly normal bilaterally Nose: Normal External nose present Face and sinus: Normal facial exam Eyes: Appearance normal, both eyes and all related structures Neck: Normal visual inspection and Yes full ROM Respiratory: Normal respiratory effort and able to speak in complete sentences. Skin: see below Neuro: Patient oriented x3, normal gait Extremities: Normal to inspection except for 2.5cm round abrasion with purulent fluid noted in the central area, slight warmth and erythema. full ROM knee [facility] Surgical History No pertinent past surgical history Family History Father Alcohol abuse Substance abuse FH: mental illness Sister FH: mental illness Maternal Grandmother High blood pressure High cholesterol Diabetes Paternal Grandmother High blood pressure High cholesterol Diabetes Thyroid disorder Mother Cardiovascular disease Social History Housing: Condominium Alcohol intake: current Patient Tobacco Use Status: Never used Tobacco e-Cigarette/Vaping Use: Currently Using Second Hand Smoke Exposure: Yes Substance Use Type: Former Substance User and Marijuana service: No Current occupational status: employed 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 Current occupational exposures/hazards: Yes Cognitive needs: No Hearing needs: No Vision needs: Yes Review of Systems Const All systems reviewed & are unremarkable except as noted in HPI and below Physical Exam Vital Signs: Last Vital Signs Temp 98.1 F 08/23/24 10:43 Pulse 84 08/23/24 10:43 BP 130/78 08/23/24 10:43 Pulse Ox 97 08/23/24 10:43 Oxygen Delivery Method Room Air 08/23/24 10:43 BMI result Body Mass Index 41.1 Assessment & Plan Assessment & Plan (1) Infected abrasion of knee: Code(s): S80.219A - Abrasion, unspecified knee, initial encounter; L08.9 - Local infection of the skin and subcutaneous tissue, unspecified Qualifiers: Encounter type: initial encounter Laterality: right Plan: I have recommended bacitracin ointment twice daily for the infected abrasion and to transition to Aquaphor once a scab forms. Cephalexin, an oral antibiotic, has been prescribed to prevent any worsening of the infection, with dosing every six hours. The prescription is sent to the patient's preferred pharmacy. Covering of the wound is suggested only in public environments to minimize germ exposure. The patient should return if any signs point to a worsening infection, including potential development of a MRSA infection, we may add Doxy at that point. Patient was informed and verbally consented to the use of an ambient scribe for clinic note documentation during this visit. Medications: New cephalexin 500 mg PO Q6H 28 caps 0RF Coding Level of Care Code Est Pt Level 3 (40660) Diagnoses Infected abrasion of knee S80.219A; L08.9 Encounter type: initial encounter Laterality: right
[2024-08-23 10:43] VITALS: BP 130/78; PULSE 84; TEMP 36.7; O2SAT 97; BMI 41.1
--- OUTSIDE RECORDS SUMMARY | 2024-08-23 12:00 | XMS_ITS | Clinical Summary ---
Author Organization [facility] Address [address] [facility] 7[address] [place] [address] Care Team Providers Care Parimutuel Ticket Checker Name Role Phone Unavailable Primary Care Provider Unavailabl e Allergies No known active allergies Medications FLUoxetine (PROzac) 40 MG capsule Take 1 capsule by mouth Once per day. 5 Active omeprazole (PriLOSEC) [address] capsule Take 1 capsule by mouth Once per day. 5 Active albuterol 108 (90 Base) MCG/ACT inhaler Inhale 2 puffs every 6 (six) hours if needed for wheezing or shortness of breath. 5 08/02/19 25 Discontinu ed(Therapy completed) Active Problems No known active problems Encounters Date Type Department Care Team Description 08/01/2024 9:00 AM EDT Office Visit [facility] [address] [place] [id number] Tarka, Dalia, OD Myopia, bilateral (Primary Dx) 08/01/2024 Travel [...] complete this topic Insurance , [address] [place] [address]
== END 2024-08-23 10:55 | disposition home or self-care (01) ==
PROVIDERS: PCP Internal Medicine; Visit Provider Physician Assistant
DX: S80.219A Abrasion, unspecified knee, initial encounter (principal); L08.9 Local infection of the skin and subcutaneous tissue, unspecified

== ENCOUNTER → 2024-08-23 10:38 | Outpatient (BNVA) | payer OTHER, SELFPAY | PROVIDERS: PCP Internal Medicine; Visit Provider Physician Assistant | DX: Z13.89 Encounter for screening for other disorder (principal) ==

== ENCOUNTER 2025-02-16 14:07 | Outpatient (AMB) | payer OTHER, SELFPAY ==
[2025-02-16 14:21] VITALS: BP 122/80; PULSE 77; TEMP 36.9; O2SAT 97; BMI 41.6
--- NOTE | 2025-02-16 14:21 | MHC.OFFWIV ---
Intake Vital Signs 02/16/25 14:21 Height 5 ft 11 in Weight 298 lb BMI 41.6 BP 122/80 Blood Pressure Location Rt brachial Position Sitting Pulse 77 Pulse Source Pulse Oximeter Temp 98.4 F Temp Source Oral Pulse Oximetry (%) 97 Oxygen Delivery Method Room Air Intake Visit Reasons: EP Lower back pain Intake Note: EP complains of the lower back pain started yesterday. The EP mentioned lifting things - physical activity the cause of the pain however he is not sure it happened at work. Patient Tobacco Use Status: Never used Tobacco Allergies No Known Allergies Allergy (Verified 02/16/25 14:30) Do you need a note to return to daycare/school/sports/work: Yes HPI HPI Comments History of Present Illness Details Patient was informed and verbally consented to the use of an ambient scribe for clinic note documentation during the visit. History of Present Illness The patient is a 29-year-old male presenting with back pain. Acute Strain of the Back: - The patient reports the onset of back pain beginning the previous day after returning home from work. - The pain was felt once the patient began to relax after a day of standing at work. - It has progressively worsened, with increased severity noted at work. - Describes the location of pain primarily on the left side of his back. - The patient experiences pain aggravated by certain movements, such as bending and standing straight. - No associated radiation of pain down the legs or numbness was reported. - The patient has no associated saddle anesthesia or urinary/bowel issues. - Patient has been taking [id number] NSAIDs such as naproxen and ibuprofen for pain relief, with variable adherence. Restless Legs Syndrome: - The patient reports experiencing restless legs in recent months, primarily at night with constant grant. - Symptoms have worsened over time, causing the patient to use his legs less and adjust activities. - No specific events or changes noted as causative. - No associated daytime consequences were reported during the conversation. Review of Systems - Musculoskeletal: Reports left-sided back pain; denies radiation to legs, denies spinal pain. - Genitourinary: Denies urinary or bowel dysfunction, denies blood in urine, no history of kidney stones. - Neurological: Reports restless legs, denies saddle anesthesia or related neurological symptoms. Constitutional: Negative for fevers, chills, fatigue, activity change, appetite change Physical Exam General Appearance: Normal appearance, well developed. No acute distress Head: Normocephalic, atraumatic Pulmonary: No respiratory distress. Speaking in full sentences Musculoskeletal: No TTP over spine, +TTP of left lumbar paraspinal soft tissue, neg straight leg test, sensation intact, normal gait, limited flexion at waist. Mental Status: Alert and Oriented x 3 Psychiatric: Normal mood. Normal affect. [facility] Surgical History No pertinent past surgical history Family History Father Alcohol abuse Substance abuse FH: mental illness Sister FH: mental illness Maternal Grandmother High blood pressure High cholesterol Diabetes Paternal Grandmother High blood pressure High cholesterol Diabetes Thyroid disorder Mother Cardiovascular disease Social History Housing: [facility] Alcohol intake: current Patient Tobacco Use Status: Never used Tobacco e-Cigarette/Vaping Use: Currently Using Second Hand Smoke Exposure: Yes Substance Use Type: Former Substance User and Marijuana service: No Current occupational status: employed 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 Current occupational exposures/hazards: Yes Cognitive needs: No Hearing needs: No Vision needs: Yes Physical Exam Vital Signs: Last Vital Signs Temp 98.4 F 02/16/25 14:21 Pulse 77 02/16/25 14:21 BP 122/80 02/16/25 14:21 Pulse Ox 97 02/16/25 14:21 Oxygen Delivery Method Room Air 02/16/25 14:21 BMI result Body Mass Index 41.6 Assessment & Plan Assessment & Plan (1) Low back strain: Code(s): S39.012A - Strain of muscle, fascia and tendon of lower back, initial encounter Qualifiers: Encounter type: initial encounter Qualified Code(s): S39.012A - Strain of muscle, fascia and tendon of lower back, initial encounter Plan - Acute back strain likely of muscular origin given the localization of pain, absence of neurological symptoms, and history of movements exacerbating pain. - Current management includes continued use of NSAIDs, specifically suggesting naproxen 500 mg every 12 hours with food to manage pain and inflammation. - Discussed avoiding over-exertion and improper lifting techniques to prevent worsening of the strain. - Consideration of muscle relaxants such as cyclobenzaprine 10 mg as needed, advised to avoid operating motorized vehicles due to potential drowsiness Medications: New naproxen 500 mg PO Q12H PRN 20 tabs 0RF pain cyclobenzaprine 10 mg PO BEDTIME PRN 10 tabs 0RF muscle spasm Discontinued naproxen sodium Discontinued Reason: Duplicate 220 mg PO BID PRN 180 caps 0RF pain Coding Level of Care Code Est Pt Level 3 (02396) Diagnoses Strain of lumbar region, initial encounter S39.012A Encounter type: initial encounter
--- OUTSIDE RECORDS SUMMARY | 2025-02-16 16:10 | XMS_ITS | Clinical Summary ---
Author Organization [employer] [facility] [employer] Address [address] [facility] 7 [place] [address] Care Team Providers Care Cook Frozen Dessert Name Role Phone Unavailable Primary Care Provider Unavailabl e Allergies No known active allergies Medications FLUoxetine (PROzac) 40 MG capsule Take 1 capsule by mouth Once per day. 05/30/2024 Active omeprazole (PriLOSEC) [address] capsule Take 1 capsule by mouth Once per day. 07/25/2024 Active Active Problems No known active problems Immunizations Immunization Administration Dates Next Due Influenza, seasonal, injectable, [...] 1993 HIV Screening 1993 SDOH Screening 1993 Disability Screening 1993 Alcohol/Substance Use Screening 2005 Family Planning (PISQ) 2008 HPV Vaccines (1 - Male 3-dos e series) 2008 Hepatitis C Screening 07/07/2011 DTaP/Tdap/Td Vaccines (1 - Tdap) 2012 Hepatitis B Vaccines (1 of 3 - 19+ 3-dose series) 2012 COVID-19 Vaccine (1 - 2023-2 5 season) 2024 Influenza Vaccine (#1) 2024 , 01/20/2020 Tobacco Screening 08/01/2025 08/01/2024 Zoster Vaccines (1 of 2) 07/07/2043 RSV Patients and Patients Aged 60 years or older (1 - 1-dose 75+ series) 2068 HIB Vaccines Aged Out No longer eligi ble based on patient's age to complete this topic Hepatitis A Vaccines Aged Out No long er eligible based on patient's age to complete this topic IPV Vaccines Aged Out No longer eligi ble based on patient's age to complete this topic Meningococcal B Vaccine Aged Out No l onger eligible based on patient's age to complete this topic Meningococcal Vaccine Aged Out No norma umang eligible based on patient's age to complete this topic Pneumococcal Vaccine: Pediatrics (0 to 5 Years) and At-Risk Patients (6 to 49) Years Aged Out No longer eligible b ased on patient's age to complete this topic RSV under 20 months Aged Out No longe r eligible based on patient's age to complete this topic Rotavirus Vaccines Aged Out No longer eligible based on patient's age to complete this topic [place] [address] [place] [address] , [address] [place] [address]
== END 2025-02-16 15:17 | disposition home or self-care (01) ==
PROVIDERS: PCP Internal Medicine; Visit Provider Family Medicine
DX: S39.012A Strain of muscle, fascia and tendon of lower back, initial encounter (principal)
CPT/HCPCS: 99213

== ENCOUNTER 2025-02-20 09:25 | Outpatient (AMB) | payer OTHER, SELFPAY ==
--- NOTE | 2025-02-20 09:29 | MHC.PC.OV ---
Vital Signs 02/20/25 09:32 Height 5 ft 11 in Weight 314 lb 6 oz BMI 43.8 BP 122/70 Blood Pressure Location Rt brachial Position Sitting Respiration 12 Pulse 72 Pulse Source Pulse Oximeter Temp 97.2 F Temp Source Oral Pulse Oximetry (%) 98 Oxygen Delivery Method Room Air Intake Visit Reasons: discuss if he wants to go on Mounjaro or glp 1 Intake Note: Follow up to discuss mounjaro Treasury Manager Required: No Allergies No Known Allergies Allergy (Verified 02/20/25 09:29) Tobacco use date assessed: 02/20/25 Dental Screening Dental Screen Date: 02/20/25 Did you have a dental visit in the last 12 months?: Yes Did you have a dental problem in the last 6 months where you did not have access to dental care?: No Was dental information given to patient?: Patient has dentist HPI HPI Comments History of Present Illness Details 29 year old male with a past medical history of right hand pain, anxiety/depression, back pain, obesity presenting for follow up He is concerned about his weight. He tries to eat a healthy diet. 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 Weight is now affecting his ability to play and engage in exercise. He would be open to pharmacologic weight loss. BMI is 43.8 CTS/wrist pain: Has naproxen prn. Needs to use splint nightly or pain worsens BH: Anxiety, depression stable on prozac 40mg daily. ROS see HPI PHYSICAL EXAM: GENERAL: Alert and oriented x 3. NAD EYES: EOMI. Anicteric. HENT: Moist mucous membranes. No scleral icterus. No cervical lymphadenopathy. LUNGS: Clear to auscultation bilaterally. CARDIOVASCULAR: Regular rate and rhythm. No murmur. No JVD. ABDOMEN: Soft, non-tender +bs EXTREMITIES: No edema. Non-tender. SKIN: No rashes or lesions. Warm. NEUROLOGIC: No focal neurological deficits. CN II-XII grossly intact PSYCHIATRIC: Cooperative. Appropriate mood and affect [facility] Surgical History No pertinent past surgical history Family History Father Alcohol abuse Substance abuse FH: mental illness Sister FH: mental illness Maternal Grandmother High blood pressure High cholesterol Diabetes Paternal Grandmother High blood pressure High cholesterol Diabetes Thyroid disorder Mother Cardiovascular disease Social History Housing: Condominium Alcohol intake: current Patient Tobacco Use Status: Never used Tobacco e-Cigarette/Vaping Use: Currently Using Second Hand Smoke Exposure: Yes Substance Use Type: Former Substance User and Marijuana service: No Current occupational status: employed 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 Current occupational exposures/hazards: Yes Cognitive needs: No Hearing needs: No Vision needs: Yes Questionnaire Thrive Questionnaire Date Thrive assessed: 05/27/24 I am a: Patient What is your living situation today?: I have a steady place to live Within the past 12 months, did the food you bought not last and you didn't have the money to get more?: Never true Within the past 12 months, did you worry whether your food would run out before you got money to buy more?: Never true Do you have trouble paying for medicines?: No Do you have trouble getting transportation to medical appointments?: No Do you have trouble paying your heating and electricity bill?: No Do you have trouble taking care of your child, family member or friend?: No Do you have trouble with day-to-day activities such as bathing, preparing meals, shopping, managing finances, etc.?: No Are you currently unemployed and looking for a job?: No Are you interested in more education?: No Please select the resources that you would like help with: None Currently or been in a relationship where the following occur: No concerns reported THRIVE Score: 0 FOUZIA-7 AMB Questionnaire FOUZIA-7 Date FOUZIA - 7 assessed: 08/08/24 Source: Developed by Drs. Enoch Jasso, Samantha Villarreal, Laron Stevens and colleagues, with an educational harvinder from [employer]. Physical exam (Primary Care) Vital Signs: Last Vital Signs Temp 97.2 F 02/20/25 09:32 Pulse 72 02/20/25 09:32 Resp 12 02/20/25 09:32 BP 122/70 02/20/25 09:32 Pulse Ox 98 02/20/25 09:32 Oxygen Delivery Method Room Air 02/20/25 09:32 BMI result Body Mass Index 43.8 Tobacco/Smoking Status: Tobacco use Status Tobacco use date assessed 02/20/25 02/20/25 09:33 Patient Tobacco Use Status Never used Tobacco 02/20/25 09:33 e-Cigarette/Vaping Use Currently Using 02/20/25 09:33 Thrive Assessment: Date of Thrive Assessment Date Thrive assessed 05/27/24 02/20/25 09:33 Currently or been in a relationship where the following occur: No concerns reported Coding Level of Care Code Est Pt Level 4 (56991) Diagnoses Obesity, Class III, BMI 40-49.9 (morbid obesity) E66.01 Dyslipidemia E78.5 Assessment & Plan Assessment & Plan (1) Obesity, Class III, BMI 40-49.9 (morbid obesity): Code(s): E66.01 - Morbid (severe) obesity due to excess calories Category: Medical (2) Dyslipidemia: Code(s): E78.5 - Hyperlipidemia, unspecified Category: Medical Plan Obesity, dyslipidemia-failed lifestyle changes Recommend treatment with GLP 1 agonist which is ordered Ondansetron sent prn Medications: New ondansetron 4 mg PO Q8H PRN 30 tabs 1RF nausea and vomiting tirzepatide (weight loss) (Zepbound) for 4 weeks 2.5 mg (0.5 mL) subcut QWEEK 2 mL 3RF
[2025-02-20 09:32] VITALS: BP 122/70; PULSE 72; RESP 12; TEMP 36.2; O2SAT 98; BMI 43.8
--- OUTSIDE RECORDS SUMMARY | 2025-02-20 10:46 | XMS_ITS | Clinical Summary ---
Author Organization [facility] Address [address] [facility] 7 [place] [address] Care Team Providers Care Valve Tester Name Role Phone Unavailable Primary Care Provider [...] patient's age to complete this topic [place] [address] [place] [address] , [address] [place] [address]
== END 2025-02-20 11:59 | disposition home or self-care (01) ==
LOC: HO.HMCFM 09:27
PROVIDERS: PCP Internal Medicine; Visit Provider Internal Medicine
DX: E78.5 Hyperlipidemia, unspecified (principal); E66.01 Morbid (severe) obesity due to excess calories; Z68.41 Body mass index [BMI] 40.0-44.9, adult

== ENCOUNTER 2025-04-23 09:19 | Outpatient (AMB) | payer OTHER, SELFPAY ==
--- OUTSIDE RECORDS SUMMARY | 2025-04-23 09:41 | XMS_ITS | Clinical Summary ---
Author Organization [employer] Address [address] [facility] 7 [place] [address] Care Team Providers Care Forming Machine Upkeep Mechanic Helper Name Role Phone Unavailable Primary Care Provider [...] 3-dose series) 2012 COVID-19 Vaccine (1 - 2024-2 6 season) 2024 Influenza Vaccine (#1) 2024 , [...] patient's age to complete this topic [place] [address] , [address] [place] [address]
--- NOTE | 2025-04-23 13:56 | A.OFFVIS_ITS ---
VS Expanded 04/23/25 14:04 Height 5 ft 10 in Weight 311 lb BMI 44.6 Body Fat % 41.2 Body Fat Mass 128 Fat Free Mass 182.8 Visceral Fat Rating 23 Body Water % 41.9 Body Water Mass 130.2 Basal Metabolic Rate/Score 2,610 Intake Visit Reasons: [employer] SWL/MWL BMI 44.6 Allergies No Known Allergies Allergy (Verified 04/23/25 13:56) Medication List - Last Reconciled 04/23/25 by Lio Sullivan MD fluoxetine 40 mg PO DAILY phentermine 37.5 mg PO DAILY HPI HPI [employer] SWL/MWL BMI 44.6: Details: Start time: 1.50pm, End time: 2.15pm ?I spent 20 minutes speaking with the patient on the phone plus an additional 5 minutes reviewing and updating records for a total of 25 minutes HPI Comments Details: Previous weight loss: self diet and exercise: lost 60lbs. Regained 20lbs and lost 20lbs with Phentermine Wakes up: 7am, Sleeps: 11pm Breakfast: skips Lunch: 1pm (rice with chicken, or grapes) Dinner: 6pm (soups, pizza) Snacks: usually not Exercise: has stepper machine and tracks calories Beverages: Coffee: (1 cup/d black or sugar free Monster driink), Tea: none, Soda (Diet Coke daily), Juice: none, ETOH: rarely PFSH Medical History (Updated 04/23/25 @ 13:58 by Lio Sullivan MD) Morbid obesity Surgical History No pertinent past surgical history Family History Father Alcohol abuse Substance abuse FH: mental illness Sister FH: mental illness Maternal Grandmother High blood pressure High cholesterol Diabetes Paternal Grandmother High blood pressure High cholesterol Diabetes Thyroid disorder Mother Cardiovascular disease Social History Housing: Condominium Alcohol intake: current Patient Tobacco Use Status: Never used Tobacco e-Cigarette/Vaping Use: Currently Using Second Hand Smoke Exposure: Yes Substance Use Type: Former Substance User and Marijuana service: No Current occupational status: employed 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 Current occupational exposures/hazards: Yes Cognitive needs: No Hearing needs: No Vision needs: Yes Telehealth Telehealth Telehealth Platform: Telephone Location of provider rendering services: practice address Location of patient: address on file Patient Identification confirmed using: Name, : Yes Telehealth method: voice only Patient verbally consented to treatment: Yes Patient verbally consented to billing insurance company: Yes Patient informed of any privacy concerns related to visit: Yes Minutes spent on Phone/Video with Pt.: 25 Assessment & Plan Assessment & Plan (1) Morbid obesity: Code(s): E66.01 - Morbid (severe) obesity due to excess calories Category: Medical Plan: ?1. As we discussed, based on your present BMI you are approximately 130lbs overweight. In my opinion, for any weight loss strategy to be successful should have a high probability to help you lose at least 110lbs out of 130lbs of the extra weight you carry. ?We discussed in detail the available therapeutic options: ?1) our lifestyle intervention program that has an average weight loss of 10% in 3 months.?Some patients continue it for longer and have lost over 50lbs but this is not common. Our lifestyle program can be provided by me. I will provide you with a link to use the khai if you choose to do so. We use protein shakes and protein bars to replace some of the meals of the day and cover your appetite better. We will decide together the exact combination ?2) Weight loss medications: these can be used in conjunction with our lifestyle program or you may choose to use them without following a lifestyle program from my program but your own. One option is to continue the Phentermine pill. It is well tolerated and most common side effects include blood pressure elevation, dry mouth, difficulty sleeping and heart palpitations. However, it can raise the blood pressure and it may not be the best option for you since you have high blood pressure already. It?s a temporary solution however and most patients tend to put the weight back once the medication is stopped. Per FDA recommendations, it should not be used for more than 3 consecutive months. 3) Your insurance does not cover the new weight loss shots. We also discussed that you can self pay for the weight loss injections and the cost is $299 for the first month, $349 for the second month and $449 for any other month thereafter. These payments go to the drug company directly and not to us. As we discussed, this is not a long wall mining machine tender solution, as most patients put all the weight back once they are off the medication. There is also an option to get generic versions from compound pharmacies at cheaper rates but their efficacy and how they are manufactured is not that clear. ?4) We also discussed about the lap sleeve gastrectomy. In my opinion this is the best option to solve your problem based on your situation. ??I emphasized the importance of close follow-up, adherence to instructions and good communication. The surgery does not replace the need to change your lifestlyle which is the cause of the obesity problem. The surgery provides the motivation to try again to change your lifestyle, it reduces the appetite and make the transition to a better lifestyle easier and doubles the amount of weight you would lose compared to doing the lifestyle change without the surgery. You will need to be on a liquid diet with protein shakes for 2 weeks before surgery to maximize weight loss and boost your nutritional status to recover better from surgery and also for the first two weeks after surgery to let the stomach heal before we introduce other foods. After the first 2 weeks we will introduce protein bars and soft foods like scrambled eggs, cottage cheese and yogurt and after the 6th week will introduce meat, fish and cooked vegetables in small amounts. Over time you should be able to eat everything in small amounts. Side effects like nausea, vomiting, heartburn or abdominal pain are not common in the practice unless you are not following in the practice. This operation requires lifetime commitment to following in our practice and communication with me. You will much less weight and experience side effects if you don?t communicate or not following in the practice. Complications are rare and in our practice is about 1/10 of the national average. 5) Very Important: We do extensive research in this practice. In very recent research we did, we found that patients who did the lifestyle program without medications followed by weight loss surgery, lost twice as much as they would lose if they used the shots for the same period of time and with the two groups being completely matched in terms of demographics and starting weights. Another research study we did found that when we compared patients who did our lifestyle program without or with the weight loss shots, they lost the same weight but they did not lose any muscle mass. The patients who used the shots lost about 3% of their muscle mass in 3 months which translates to 5-15lbs of actual muscle mass depending on each patient's initial weight. That's not good because it makes you frail and weak and reduces your metabolism. In another research study we did, we found that losing 10-20% of your initial weight before the weight loss surgery, followed by surgery at the lowest possible weight, gives you a significant boost in group home weight loss 6 years or more after surgery, that makes a difference in the long-term success. Preoperative weight loss is not commonly used by many practices especially at this magnitude, but it is our philosophy and makes a huge difference. Please let me know what you decide.?
[2025-04-23 14:04] VITALS: BMI 44.6
== END 2025-04-23 14:18 | disposition home or self-care (01) ==
LOC: HO.HBS 09:19
PROVIDERS: PCP Internal Medicine; Visit Provider Surgery
DX: E66.01 Morbid (severe) obesity due to excess calories (principal)
CPT/HCPCS: 99202